=== PATIENT | male | born 1935 | race Caucasian/White ===

== ENCOUNTER 2016-10-15 12:19 | Inpatient (IN) | payer MEDICARE, OTHER ==
[2016-10-15] MEDS ORDERED: Mag-Al Plus 1200 MG/1200 MG/120 MG/30 ML UDCUP PO PRN (17:09)
[2016-10-15] MEDS ORDERED: Artificial Tear Sol 15 ML BOT EA EYE PRN (17:10)
[2016-10-15] MEDS ORDERED: Mag-Al Plus 1200 MG/1200 MG/120 MG/30 ML UDCUP SSW PRN (17:10)
[2016-10-15] MEDS ORDERED: Bisacodyl 10 MG SUPP PR PRN (17:10)
[2016-10-15] MEDS ORDERED: Furosemide 20 MG TAB PO PRN (17:11)
[2016-10-15] MEDS ORDERED: Milk Of Magnesia 30 ML UDCUP PO PRN (17:13)
[2016-10-15] MEDS ORDERED: traMADol HCl 50 MG TAB PO PRN (17:14)
[2016-10-15] MEDS ORDERED: MEDROL DOSPAK PO SCH (17:15)
[2016-10-15] MEDS ORDERED: Acetaminophen 325 MG TAB PER TUBE PRN (19:25)
[2016-10-15] MEDS: Pravastatin Sodium 20 MG TAB PO SCH (22:04)
[2016-10-16] MEDS: Levothyroxine Sodium 50 MCG TAB PO SCH (06:23)
[2016-10-16] MEDS: Potassium Chloride 20 MEQ TAB PO SCH (08:45)
[2016-10-16] MEDS: Aspirin 81 mg Enteric Coated Tablet PO SCH (08:46)
[2016-10-16] MEDS: Fluticasone Propionate Nasal Spray 16 gm Bottle NASAL SCH (08:46)
[2016-10-16] MEDS: DIPHENHYDRAMINE HCL SSP PRN ×8 (08:57→14:02)
[2016-10-16] MEDS: AL HYDROX SSP PRN ×8 (08:57→14:02)
[2016-10-16] MEDS: SIMETH SSP PRN ×8 (08:57→14:02)
[2016-10-16] MEDS: [UNRECOGNIZED DRUG - OTHER] SSP PRN ×8 (08:57→14:02)
[2016-10-16] MEDS: MAG HYDROX SSP PRN ×8 (08:57→14:02)
[2016-10-16] MEDS ORDERED: Lidocaine Viscous Sol 2% 15 ml UD Cup ONE (21:14)
[2016-10-16] MEDS: Pravastatin Sodium 20 MG TAB PO SCH (21:22)
[2016-10-16] MEDS: Lidocaine Viscous Sol 2% 15 ml UD Cup SSW PRN (21:22)
[2016-10-17] MEDS: Levothyroxine Sodium 50 MCG TAB PO SCH (06:06)
[2016-10-17] MEDS ORDERED: Lidocaine Viscous Sol 2% 15 ml UD Cup ONE (06:15)
[2016-10-17] MEDS: Lidocaine Viscous Sol 2% 15 ml UD Cup SSW PRN (06:20)
[2016-10-17] MEDS: Fluticasone Propionate Nasal Spray 16 gm Bottle NASAL SCH (08:42)
[2016-10-17] MEDS: SIMETH SSP PRN ×8 (08:44→18:53)
[2016-10-17] MEDS: MAG HYDROX SSP PRN ×8 (08:44→18:53)
[2016-10-17] MEDS: [UNRECOGNIZED DRUG - OTHER] SSP PRN ×8 (08:44→18:53)
[2016-10-17] MEDS: DIPHENHYDRAMINE HCL SSP PRN ×8 (08:44→18:53)
[2016-10-17] MEDS: Potassium Chloride 20 MEQ TAB PO SCH (08:44)
[2016-10-17] MEDS: AL HYDROX SSP PRN ×8 (08:44→18:53)
[2016-10-17] MEDS: Aspirin 81 mg Enteric Coated Tablet PO SCH (08:44)
[2016-10-17] MEDS: Pravastatin Sodium 20 MG TAB PO SCH (21:57)
[2016-10-18] MEDS: Levothyroxine Sodium 50 MCG TAB PO SCH (06:31)
[2016-10-18] MEDS ORDERED: Lidocaine Viscous Sol 2% 15 ml UD Cup ONE (06:41)
[2016-10-18] MEDS: Lidocaine Viscous Sol 2% 15 ml UD Cup SSW PRN (06:43)
[2016-10-18] MEDS: Aspirin 81 mg Enteric Coated Tablet PO SCH (09:05)
[2016-10-18] MEDS: Fluticasone Propionate Nasal Spray 16 gm Bottle NASAL SCH (09:06)
[2016-10-18] MEDS: Potassium Chloride 20 MEQ TAB PO SCH (09:10)
[2016-10-18] MEDS: MAG HYDROX SSP PRN ×8 (09:42→18:41)
[2016-10-18] MEDS: [UNRECOGNIZED DRUG - OTHER] SSP PRN ×8 (09:42→18:41)
[2016-10-18] MEDS: SIMETH SSP PRN ×8 (09:42→18:41)
[2016-10-18] MEDS: DIPHENHYDRAMINE HCL SSP PRN ×8 (09:42→18:41)
[2016-10-18] MEDS: AL HYDROX SSP PRN ×8 (09:42→18:41)
[2016-10-18] MEDS ORDERED: Zolpidem Tartrate 5 MG TAB PO PRN (10:58)
[2016-10-18] MEDS ORDERED: Scopolamine 1.5 mg/72 hour Patch TD PRN (10:58)
[2016-10-18] MEDS ORDERED: ALPRAZolam 0.5 MG TAB PO PRN (10:58)
[2016-10-18] MEDS ORDERED: Morphine Sulfate 2 MG/ML SYRINGE SLOW IVP PRN (10:58)
[2016-10-18] MEDS: Pravastatin Sodium 20 MG TAB PO SCH (21:25)
[2016-10-19] MEDS: Levothyroxine Sodium 50 MCG TAB PO SCH (06:13)
[2016-10-19] MEDS ORDERED: Lidocaine Viscous Sol 2% 15 ml UD Cup ONE (06:22)
[2016-10-19] MEDS: Lidocaine Viscous Sol 2% 15 ml UD Cup SSW PRN (06:23)
[2016-10-19] MEDS: Potassium Chloride 20 MEQ TAB PO SCH (09:29)
[2016-10-19] MEDS: Aspirin 81 mg Enteric Coated Tablet PO SCH (09:30)
[2016-10-19] MEDS: Fluticasone Propionate Nasal Spray 16 gm Bottle NASAL SCH (10:27)
[2016-10-19] MEDS: Pravastatin Sodium 20 MG TAB PO SCH (21:53)
[2016-10-20] MEDS: Levothyroxine Sodium 50 MCG TAB PO SCH (06:11)
[2016-10-20] MEDS ORDERED: Lidocaine Viscous Sol 2% 15 ml UD Cup ONE ×2 (06:21→21:14)
[2016-10-20] MEDS: Acetaminophen 325 MG TAB PO PRN ×2 (06:25→21:22)
[2016-10-20] MEDS: Lidocaine Viscous Sol 2% 15 ml UD Cup SSW PRN ×2 (06:25→21:23)
[2016-10-20] MEDS: Potassium Chloride 20 MEQ TAB PO SCH (09:05)
[2016-10-20] MEDS: Aspirin 81 mg Enteric Coated Tablet PO SCH (09:05)
[2016-10-20] MEDS: Fluticasone Propionate Nasal Spray 16 gm Bottle NASAL SCH (09:10)
[2016-10-20] MEDS: Pravastatin Sodium 20 MG TAB PO SCH (21:23)
[2016-10-21] MEDS ORDERED: Lidocaine Viscous Sol 2% 15 ml UD Cup ONE (06:27)
[2016-10-21] MEDS: Lidocaine Viscous Sol 2% 15 ml UD Cup SSW PRN (06:41)
[2016-10-21] MEDS: Levothyroxine Sodium 50 MCG TAB PO SCH (06:42)
[2016-10-21] MEDS ORDERED: DIPHENHYDRAMINE HCL SSW PRN ×4 (07:58)
[2016-10-21] MEDS ORDERED: [UNRECOGNIZED DRUG - OTHER] SSW PRN ×4 (07:58)
[2016-10-21] MEDS ORDERED: AL HYDROX SSW PRN ×4 (07:58)
[2016-10-21] MEDS ORDERED: SIMETH SSW PRN ×4 (07:58)
[2016-10-21] MEDS ORDERED: MAG HYDROX SSW PRN ×4 (07:58)
[2016-10-21] MEDS: Potassium Chloride 20 MEQ TAB PO SCH (08:46)
[2016-10-21] MEDS: Aspirin 81 mg Enteric Coated Tablet PO SCH (08:46)
[2016-10-21] MEDS: Fluticasone Propionate Nasal Spray 16 gm Bottle NASAL SCH (08:47)
[2016-10-21] MEDS ORDERED: Lidocaine Viscous Sol 2% 15 ml UD Cup SSW SCH (11:30)
[2016-10-21] MEDS: AL HYDROX SSW SCH ×8 (11:46→16:49)
[2016-10-21] MEDS: MAG HYDROX SSW SCH ×8 (11:46→16:49)
[2016-10-21] MEDS: DIPHENHYDRAMINE HCL SSW SCH ×8 (11:46→16:49)
[2016-10-21] MEDS: SIMETH SSW SCH ×8 (11:46→16:49)
[2016-10-21] MEDS: [UNRECOGNIZED DRUG - OTHER] SSW SCH ×8 (11:46→16:49)
[2016-10-21] MEDS: Sodium Chloride 0.9% 1,000 ML IV SCH (17:12)
[2016-10-21] MEDS: methylPREDNISolone 4 mg Tablet PO SCH ×2 (17:56→20:12)
[2016-10-21] MEDS: Nystatin Powder 15 GM BOT TOP PRN ×2 (17:59→20:14)
[2016-10-21] MEDS: Acetaminophen 325 MG TAB PO PRN (20:13)
[2016-10-21] MEDS: Pravastatin Sodium 20 MG TAB PO SCH (20:13)
[2016-10-22] MEDS: Levothyroxine Sodium 50 MCG TAB PO SCH (05:56)
[2016-10-22] MEDS: MAG HYDROX SSW PRN ×4 (06:10)
[2016-10-22] MEDS: [UNRECOGNIZED DRUG - OTHER] SSW PRN ×4 (06:10)
[2016-10-22] MEDS: AL HYDROX SSW PRN ×4 (06:10)
[2016-10-22] MEDS: SIMETH SSW PRN ×4 (06:10)
[2016-10-22] MEDS: DIPHENHYDRAMINE HCL SSW PRN ×4 (06:10)
[2016-10-22] MEDS: SIMETH SSW SCH ×12 (06:17→16:47)
[2016-10-22] MEDS: [UNRECOGNIZED DRUG - OTHER] SSW SCH ×12 (06:17→16:47)
[2016-10-22] MEDS: MAG HYDROX SSW SCH ×12 (06:17→16:47)
[2016-10-22] MEDS: DIPHENHYDRAMINE HCL SSW SCH ×12 (06:17→16:47)
[2016-10-22] MEDS: AL HYDROX SSW SCH ×12 (06:17→16:47)
[2016-10-22] MEDS: Nystatin Powder 15 GM BOT TOP PRN (06:21)
[2016-10-22] MEDS: Fluticasone Propionate Nasal Spray 16 gm Bottle NASAL SCH (09:00)
[2016-10-22] MEDS: Aspirin 81 mg Enteric Coated Tablet PO SCH (09:00)
[2016-10-22] MEDS: Potassium Chloride 20 MEQ TAB PO SCH (09:00)
[2016-10-22] MEDS: methylPREDNISolone 4 mg Tablet PO SCH ×3 (09:01→18:07)
[2016-10-22] MEDS: Sodium Chloride 0.9% 1,000 ML IV SCH ×2 (12:52→12:53)
[2016-10-22] MEDS: Acetaminophen 325 MG TAB PO PRN (19:11)
[2016-10-22] MEDS ORDERED: methylPREDNISolone 4 mg Tablet PO SCH (21:00)
[2016-10-22] MEDS: Pravastatin Sodium 20 MG TAB PO SCH (21:09)
[2016-10-23] MEDS: Levothyroxine Sodium 50 MCG TAB PO SCH (06:06)
[2016-10-23] MEDS: AL HYDROX SSW SCH ×12 (06:08→17:21)
[2016-10-23] MEDS: DIPHENHYDRAMINE HCL SSW SCH ×12 (06:08→17:21)
[2016-10-23] MEDS: SIMETH SSW SCH ×12 (06:08→17:21)
[2016-10-23] MEDS: MAG HYDROX SSW SCH ×12 (06:08→17:21)
[2016-10-23] MEDS: [UNRECOGNIZED DRUG - OTHER] SSW SCH ×12 (06:08→17:21)
[2016-10-23] MEDS: Sodium Chloride 0.9% 1,000 ML IV SCH (09:36)
[2016-10-23] MEDS: Aspirin 81 mg Enteric Coated Tablet PO SCH (09:38)
[2016-10-23] MEDS: Potassium Chloride 20 MEQ TAB PO SCH (09:39)
[2016-10-23] MEDS: methylPREDNISolone 4 mg Tablet PO SCH ×4 (09:40→21:38)
[2016-10-23] MEDS: Fluticasone Propionate Nasal Spray 16 gm Bottle NASAL SCH (09:40)
[2016-10-23] MEDS: Pravastatin Sodium 20 MG TAB PO SCH (21:38)
[2016-10-24] MEDS: Levothyroxine Sodium 50 MCG TAB PO SCH (06:42)
[2016-10-24] MEDS: AL HYDROX SSW SCH ×12 (06:43→17:15)
[2016-10-24] MEDS: [UNRECOGNIZED DRUG - OTHER] SSW SCH ×12 (06:43→17:15)
[2016-10-24] MEDS: SIMETH SSW SCH ×12 (06:43→17:15)
[2016-10-24] MEDS: MAG HYDROX SSW SCH ×12 (06:43→17:15)
[2016-10-24] MEDS: Sodium Chloride 0.9% 1,000 ML IV SCH (06:43)
[2016-10-24] MEDS: DIPHENHYDRAMINE HCL SSW SCH ×12 (06:43→17:15)
[2016-10-24] MEDS: methylPREDNISolone 4 mg Tablet PO SCH ×3 (09:57→17:17)
[2016-10-24] MEDS: Potassium Chloride 20 MEQ TAB PO SCH (09:57)
[2016-10-24] MEDS: Fluticasone Propionate Nasal Spray 16 gm Bottle NASAL SCH (09:59)
[2016-10-24] MEDS: Aspirin 81 mg Enteric Coated Tablet PO SCH (09:59)
[2016-10-24] MEDS: Pravastatin Sodium 20 MG TAB PO SCH (21:17)
[2016-10-25] MEDS: Sodium Chloride 0.9% 1,000 ML IV SCH (02:12)
[2016-10-25] MEDS: Levothyroxine Sodium 50 MCG TAB PO SCH (06:33)
[2016-10-25] MEDS: [UNRECOGNIZED DRUG - OTHER] SSW SCH ×12 (06:33→18:27)
[2016-10-25] MEDS: AL HYDROX SSW SCH ×12 (06:33→18:27)
[2016-10-25] MEDS: DIPHENHYDRAMINE HCL SSW SCH ×12 (06:33→18:27)
[2016-10-25] MEDS: MAG HYDROX SSW SCH ×12 (06:33→18:27)
[2016-10-25] MEDS: SIMETH SSW SCH ×12 (06:33→18:27)
[2016-10-25] MEDS: methylPREDNISolone 4 mg Tablet PO SCH ×2 (09:10→18:27)
[2016-10-25] MEDS: Potassium Chloride 20 MEQ TAB PO SCH (09:10)
[2016-10-25] MEDS: Fluticasone Propionate Nasal Spray 16 gm Bottle NASAL SCH (09:11)
[2016-10-25] MEDS: Aspirin 81 mg Enteric Coated Tablet PO SCH (09:11)
[2016-10-25] MEDS: Pravastatin Sodium 20 MG TAB PO SCH (21:39)
[2016-10-26] MEDS: Sodium Chloride 0.9% 1,000 ML IV SCH ×2 (00:19→18:44)
[2016-10-26] MEDS: Levothyroxine Sodium 50 MCG TAB PO SCH (05:59)
[2016-10-26] MEDS: DIPHENHYDRAMINE HCL SSW SCH ×12 (06:43→16:28)
[2016-10-26] MEDS: MAG HYDROX SSW SCH ×12 (06:43→16:28)
[2016-10-26] MEDS: [UNRECOGNIZED DRUG - OTHER] SSW SCH ×12 (06:43→16:28)
[2016-10-26] MEDS: AL HYDROX SSW SCH ×12 (06:43→16:28)
[2016-10-26] MEDS: SIMETH SSW SCH ×12 (06:43→16:28)
[2016-10-26] MEDS ORDERED: methylPREDNISolone 4 mg Tablet PO SCH (08:00)
[2016-10-26] MEDS: Fluticasone Propionate Nasal Spray 16 gm Bottle NASAL SCH (09:10)
[2016-10-26] MEDS: Potassium Chloride 20 MEQ TAB PO SCH (09:11)
[2016-10-26] MEDS: Aspirin 81 mg Enteric Coated Tablet PO SCH (09:11)
[2016-10-26] MEDS: Pravastatin Sodium 20 MG TAB PO SCH (21:34)
[2016-10-26] MEDS: Nystatin Powder 15 GM BOT TOP PRN (21:36)
[2016-10-27] MEDS: Levothyroxine Sodium 50 MCG TAB PO SCH (05:34)
[2016-10-27 06:05] VITALS: BMI 16.9
[2016-10-27] MEDS: MAG HYDROX SSW SCH ×12 (06:08→18:16)
[2016-10-27] MEDS: [UNRECOGNIZED DRUG - OTHER] SSW SCH ×12 (06:08→18:16)
[2016-10-27] MEDS: SIMETH SSW SCH ×12 (06:08→18:16)
[2016-10-27] MEDS: AL HYDROX SSW SCH ×12 (06:08→18:16)
[2016-10-27] MEDS: DIPHENHYDRAMINE HCL SSW SCH ×12 (06:08→18:16)
[2016-10-27] MEDS: Nystatin Powder 15 GM BOT TOP PRN ×2 (06:12→21:05)
[2016-10-27] MEDS: Potassium Chloride 20 MEQ TAB PO SCH (09:00)
[2016-10-27] MEDS: Aspirin 81 mg Enteric Coated Tablet PO SCH (09:01)
[2016-10-27] MEDS: Fluticasone Propionate Nasal Spray 16 gm Bottle NASAL SCH (09:01)
[2016-10-27] MEDS: Sodium Chloride 0.9% 1,000 ML IV SCH (14:37)
[2016-10-27] MEDS: Pravastatin Sodium 20 MG TAB PO SCH (21:05)
[2016-10-28] MEDS: Nystatin Powder 15 GM BOT TOP PRN (06:21)
[2016-10-28] MEDS: Levothyroxine Sodium 50 MCG TAB PO SCH (06:21)
[2016-10-28] MEDS: DIPHENHYDRAMINE HCL SSW SCH ×12 (06:23→16:01)
[2016-10-28] MEDS: [UNRECOGNIZED DRUG - OTHER] SSW SCH ×12 (06:23→16:01)
[2016-10-28] MEDS: SIMETH SSW SCH ×12 (06:23→16:01)
[2016-10-28] MEDS: AL HYDROX SSW SCH ×12 (06:23→16:01)
[2016-10-28] MEDS: MAG HYDROX SSW SCH ×12 (06:23→16:01)
[2016-10-28] MEDS: Potassium Chloride 20 MEQ TAB PO SCH (09:10)
[2016-10-28] MEDS: Aspirin 81 mg Enteric Coated Tablet PO SCH (09:11)
[2016-10-28] MEDS: Fluticasone Propionate Nasal Spray 16 gm Bottle NASAL SCH (09:12)
[2016-10-28] MEDS: Sodium Chloride 0.9% 1,000 ML IV SCH (09:20)
[2016-10-28] MEDS: [UNRECOGNIZED DRUG - OTHER] SSW PRN ×4 (15:59)
[2016-10-28] MEDS: DIPHENHYDRAMINE HCL SSW PRN ×4 (15:59)
[2016-10-28] MEDS: SIMETH SSW PRN ×4 (15:59)
[2016-10-28] MEDS: AL HYDROX SSW PRN ×4 (15:59)
[2016-10-28] MEDS: MAG HYDROX SSW PRN ×4 (15:59)
[2016-10-28] MEDS: Pravastatin Sodium 20 MG TAB PO SCH (21:15)
[2016-10-29] MEDS: Sodium Chloride 0.9% 1,000 ML IV SCH (06:05)
[2016-10-29] MEDS: Levothyroxine Sodium 50 MCG TAB PO SCH (06:07)
[2016-10-29] MEDS: AL HYDROX SSW SCH ×12 (06:08→18:34)
[2016-10-29] MEDS: SIMETH SSW SCH ×12 (06:08→18:34)
[2016-10-29] MEDS: [UNRECOGNIZED DRUG - OTHER] SSW SCH ×12 (06:08→18:34)
[2016-10-29] MEDS: DIPHENHYDRAMINE HCL SSW SCH ×12 (06:08→18:34)
[2016-10-29] MEDS: MAG HYDROX SSW SCH ×12 (06:08→18:34)
[2016-10-29] MEDS: Acetaminophen 325 MG TAB PO PRN ×2 (06:21→21:01)
[2016-10-29] MEDS: Fluticasone Propionate Nasal Spray 16 gm Bottle NASAL SCH (08:17)
[2016-10-29] MEDS: MAG HYDROX SSW PRN ×4 (08:18)
[2016-10-29] MEDS: DIPHENHYDRAMINE HCL SSW PRN ×4 (08:18)
[2016-10-29] MEDS: AL HYDROX SSW PRN ×4 (08:18)
[2016-10-29] MEDS: SIMETH SSW PRN ×4 (08:18)
[2016-10-29] MEDS: [UNRECOGNIZED DRUG - OTHER] SSW PRN ×4 (08:18)
[2016-10-29] MEDS: Aspirin 81 mg Enteric Coated Tablet PO SCH (08:21)
[2016-10-29] MEDS: Potassium Chloride 20 MEQ TAB PO SCH (08:21)
[2016-10-29] MEDS: Hyoscyamine Sulfate SL 0.125 mg Tablet PO PRN (21:01)
[2016-10-29] MEDS: Benzonatate 100 MG CAP PO PRN (21:01)
[2016-10-29] MEDS: Pravastatin Sodium 20 MG TAB PO SCH (21:02)
[2016-10-30] MEDS: Sodium Chloride 0.9% 1,000 ML IV SCH ×2 (02:04→22:10)
[2016-10-30] MEDS: Levothyroxine Sodium 50 MCG TAB PO SCH (05:57)
[2016-10-30] MEDS: [UNRECOGNIZED DRUG - OTHER] SSW SCH ×12 (05:59→17:01)
[2016-10-30] MEDS: AL HYDROX SSW SCH ×12 (05:59→17:01)
[2016-10-30] MEDS: SIMETH SSW SCH ×12 (05:59→17:01)
[2016-10-30] MEDS: MAG HYDROX SSW SCH ×12 (05:59→17:01)
[2016-10-30] MEDS: DIPHENHYDRAMINE HCL SSW SCH ×12 (05:59→17:01)
[2016-10-30] MEDS: Aspirin 81 mg Enteric Coated Tablet PO SCH (08:44)
[2016-10-30] MEDS: Potassium Chloride 20 MEQ TAB PO SCH (08:45)
[2016-10-30] MEDS: Fluticasone Propionate Nasal Spray 16 gm Bottle NASAL SCH (08:45)
[2016-10-30] MEDS: MAG HYDROX SSW PRN ×4 (12:09)
[2016-10-30] MEDS: SIMETH SSW PRN ×4 (12:09)
[2016-10-30] MEDS: [UNRECOGNIZED DRUG - OTHER] SSW PRN ×4 (12:09)
[2016-10-30] MEDS: DIPHENHYDRAMINE HCL SSW PRN ×4 (12:09)
[2016-10-30] MEDS: AL HYDROX SSW PRN ×4 (12:09)
[2016-10-30] MEDS ORDERED: MAG HYDROX SSW SCH ×4 (13:00)
[2016-10-30] MEDS ORDERED: DIPHENHYDRAMINE HCL SSW SCH ×4 (13:00)
[2016-10-30] MEDS ORDERED: SIMETH SSW SCH ×4 (13:00)
[2016-10-30] MEDS ORDERED: [UNRECOGNIZED DRUG - OTHER] SSW SCH ×4 (13:00)
[2016-10-30] MEDS ORDERED: AL HYDROX SSW SCH ×4 (13:00)
[2016-10-30] MEDS: Pravastatin Sodium 20 MG TAB PO SCH (20:23)
[2016-10-30] MEDS: Acetaminophen 325 MG TAB PO PRN (20:27)
[2016-10-31] MEDS: Levothyroxine Sodium 50 MCG TAB PO SCH (06:08)
[2016-10-31] MEDS: AL HYDROX SSW SCH ×12 (06:10→15:36)
[2016-10-31] MEDS: SIMETH SSW SCH ×12 (06:10→15:36)
[2016-10-31] MEDS: [UNRECOGNIZED DRUG - OTHER] SSW SCH ×12 (06:10→15:36)
[2016-10-31] MEDS: MAG HYDROX SSW SCH ×12 (06:10→15:36)
[2016-10-31] MEDS: DIPHENHYDRAMINE HCL SSW SCH ×12 (06:10→15:36)
[2016-10-31] MEDS: Aspirin 81 mg Enteric Coated Tablet PO SCH (08:38)
[2016-10-31] MEDS: Potassium Chloride 20 MEQ TAB PO SCH (08:38)
[2016-10-31] MEDS: Fluticasone Propionate Nasal Spray 16 gm Bottle NASAL SCH (08:38)
[2016-10-31] MEDS: Sodium Chloride 0.9% 1,000 ML IV SCH (16:28)
[2016-10-31] MEDS: Pravastatin Sodium 20 MG TAB PO SCH (20:55)
[2016-11-01] MEDS: Levothyroxine Sodium 50 MCG TAB PO SCH (06:07)
[2016-11-01] MEDS: SIMETH SSW PRN ×8 (06:08→12:07)
[2016-11-01] MEDS: MAG HYDROX SSW PRN ×8 (06:08→12:07)
[2016-11-01] MEDS: DIPHENHYDRAMINE HCL SSW PRN ×8 (06:08→12:07)
[2016-11-01] MEDS: [UNRECOGNIZED DRUG - OTHER] SSW PRN ×8 (06:08→12:07)
[2016-11-01] MEDS: AL HYDROX SSW PRN ×8 (06:08→12:07)
[2016-11-01] MEDS: DIPHENHYDRAMINE HCL SSW SCH ×12 (06:27→18:55)
[2016-11-01] MEDS: SIMETH SSW SCH ×12 (06:27→18:55)
[2016-11-01] MEDS: [UNRECOGNIZED DRUG - OTHER] SSW SCH ×12 (06:27→18:55)
[2016-11-01] MEDS: AL HYDROX SSW SCH ×12 (06:27→18:55)
[2016-11-01] MEDS: MAG HYDROX SSW SCH ×12 (06:27→18:55)
[2016-11-01] MEDS: Aspirin 81 mg Enteric Coated Tablet PO SCH (08:25)
[2016-11-01] MEDS: Fluticasone Propionate Nasal Spray 16 gm Bottle NASAL SCH (08:26)
[2016-11-01] MEDS: Potassium Chloride 20 MEQ TAB PO SCH (08:26)
[2016-11-01] MEDS: Sodium Chloride 0.9% 1,000 ML IV SCH (12:21)
[2016-11-01] MEDS: Pravastatin Sodium 20 MG TAB PO SCH (20:23)
[2016-11-02] MEDS: Levothyroxine Sodium 50 MCG TAB PO SCH (06:02)
[2016-11-02] MEDS: MAG HYDROX SSW SCH ×12 (06:06→16:44)
[2016-11-02] MEDS: SIMETH SSW SCH ×12 (06:06→16:44)
[2016-11-02] MEDS: DIPHENHYDRAMINE HCL SSW SCH ×12 (06:06→16:44)
[2016-11-02] MEDS: AL HYDROX SSW SCH ×12 (06:06→16:44)
[2016-11-02] MEDS: [UNRECOGNIZED DRUG - OTHER] SSW SCH ×12 (06:06→16:44)
[2016-11-02] MEDS: Sodium Chloride 0.9% 1,000 ML IV SCH (07:55)
[2016-11-02] MEDS: Aspirin 81 mg Enteric Coated Tablet PO SCH (08:54)
[2016-11-02] MEDS: Fluticasone Propionate Nasal Spray 16 gm Bottle NASAL SCH (08:55)
[2016-11-02] MEDS: Potassium Chloride 20 MEQ TAB PO SCH (08:55)
[2016-11-02] MEDS: Pravastatin Sodium 20 MG TAB PO SCH (20:56)
[2016-11-02] MEDS: Acetaminophen 325 MG TAB PO PRN (21:00)
[2016-11-03] MEDS: Benzonatate 100 MG CAP PO PRN ×3 (02:31→20:41)
[2016-11-03] MEDS: Sodium Chloride 0.9% 1,000 ML IV SCH (04:13)
[2016-11-03] MEDS: Levothyroxine Sodium 50 MCG TAB PO SCH (06:14)
[2016-11-03] MEDS: [UNRECOGNIZED DRUG - OTHER] SSW SCH ×12 (06:15→18:29)
[2016-11-03] MEDS: DIPHENHYDRAMINE HCL SSW SCH ×12 (06:15→18:29)
[2016-11-03] MEDS: AL HYDROX SSW SCH ×12 (06:15→18:29)
[2016-11-03] MEDS: MAG HYDROX SSW SCH ×12 (06:15→18:29)
[2016-11-03] MEDS: SIMETH SSW SCH ×12 (06:15→18:29)
[2016-11-03] MEDS: Aspirin 81 mg Enteric Coated Tablet PO SCH (08:49)
[2016-11-03] MEDS: Potassium Chloride 20 MEQ TAB PO SCH (08:49)
[2016-11-03] MEDS: Fluticasone Propionate Nasal Spray 16 gm Bottle NASAL SCH (08:49)
[2016-11-03] MEDS: Pravastatin Sodium 20 MG TAB PO SCH (20:41)
[2016-11-03] MEDS: Acetaminophen 325 MG TAB PO PRN (20:41)
[2016-11-03] MEDS: Hyoscyamine Sulfate SL 0.125 mg Tablet PO PRN (20:42)
[2016-11-04] MEDS: Levothyroxine Sodium 50 MCG TAB PO SCH (06:11)
[2016-11-04] MEDS: AL HYDROX SSW SCH ×12 (06:12→16:57)
[2016-11-04] MEDS: MAG HYDROX SSW SCH ×12 (06:12→16:57)
[2016-11-04] MEDS: SIMETH SSW SCH ×12 (06:12→16:57)
[2016-11-04] MEDS: [UNRECOGNIZED DRUG - OTHER] SSW SCH ×12 (06:12→16:57)
[2016-11-04] MEDS: DIPHENHYDRAMINE HCL SSW SCH ×12 (06:12→16:57)
[2016-11-04] MEDS: Aspirin 81 mg Enteric Coated Tablet PO SCH (08:28)
[2016-11-04] MEDS: Fluticasone Propionate Nasal Spray 16 gm Bottle NASAL SCH (08:29)
[2016-11-04] MEDS: Potassium Chloride 20 MEQ TAB PO SCH (08:33)
[2016-11-04] MEDS: Benzonatate 100 MG CAP PO PRN (17:10)
[2016-11-04] MEDS: Acetaminophen 325 MG TAB PO PRN (21:43)
[2016-11-04] MEDS: Hyoscyamine Sulfate SL 0.125 mg Tablet PO PRN (21:43)
[2016-11-04] MEDS: Pravastatin Sodium 20 MG TAB PO SCH (21:44)
[2016-11-05] MEDS: Levothyroxine Sodium 50 MCG TAB PO SCH (06:24)
[2016-11-05] MEDS: AL HYDROX SSW SCH ×12 (06:25→16:58)
[2016-11-05] MEDS: MAG HYDROX SSW SCH ×12 (06:25→16:58)
[2016-11-05] MEDS: [UNRECOGNIZED DRUG - OTHER] SSW SCH ×12 (06:25→16:58)
[2016-11-05] MEDS: DIPHENHYDRAMINE HCL SSW SCH ×12 (06:25→16:58)
[2016-11-05] MEDS: SIMETH SSW SCH ×12 (06:25→16:58)
[2016-11-05] MEDS: Aspirin 81 mg Enteric Coated Tablet PO SCH (08:49)
[2016-11-05] MEDS: Potassium Chloride 20 MEQ TAB PO SCH (08:49)
[2016-11-05] MEDS: Fluticasone Propionate Nasal Spray 16 gm Bottle NASAL SCH (08:54)
[2016-11-05] MEDS: Acetaminophen 325 MG TAB PO PRN (19:44)
[2016-11-05] MEDS: Pravastatin Sodium 20 MG TAB PO SCH (21:11)
[2016-11-06] MEDS: Levothyroxine Sodium 50 MCG TAB PO SCH (06:41)
[2016-11-06] MEDS: traMADol HCl 50 MG TAB PO PRN (09:26)
[2016-11-06] MEDS: Fluticasone Propionate Nasal Spray 16 gm Bottle NASAL SCH (09:29)
[2016-11-06] MEDS: Aspirin 81 mg Enteric Coated Tablet PO SCH (09:29)
[2016-11-06] MEDS: Potassium Chloride 20 MEQ TAB PO SCH (09:30)
[2016-11-06] MEDS: [UNRECOGNIZED DRUG - OTHER] SSW SCH ×12 (12:15→20:45)
[2016-11-06] MEDS: SIMETH SSW SCH ×12 (12:15→20:45)
[2016-11-06] MEDS: DIPHENHYDRAMINE HCL SSW SCH ×12 (12:15→20:45)
[2016-11-06] MEDS: MAG HYDROX SSW SCH ×12 (12:15→20:45)
[2016-11-06] MEDS: AL HYDROX SSW SCH ×12 (12:15→20:45)
[2016-11-06] MEDS: Ibuprofen 800 MG TAB PO PRN (16:37)
[2016-11-06] MEDS: Pravastatin Sodium 20 MG TAB PO SCH (20:42)
[2016-11-07] MEDS: Levothyroxine Sodium 50 MCG TAB PO SCH (06:27)
[2016-11-07] MEDS: AL HYDROX SSW SCH ×8 (06:29→13:29)
[2016-11-07] MEDS: [UNRECOGNIZED DRUG - OTHER] SSW SCH ×8 (06:29→13:29)
[2016-11-07] MEDS: MAG HYDROX SSW SCH ×8 (06:29→13:29)
[2016-11-07] MEDS: SIMETH SSW SCH ×8 (06:29→13:29)
[2016-11-07] MEDS: DIPHENHYDRAMINE HCL SSW SCH ×8 (06:29→13:29)
[2016-11-07] MEDS: Aspirin 81 mg Enteric Coated Tablet PO SCH (09:22)
[2016-11-07] MEDS: Potassium Chloride 20 MEQ TAB PO SCH (09:23)
[2016-11-07] MEDS: Fluticasone Propionate Nasal Spray 16 gm Bottle NASAL SCH (09:24)
[2016-11-07] MEDS: Ibuprofen 800 MG TAB PO PRN (09:55)
[2016-11-07] MEDS: Benzonatate 100 MG CAP PO PRN (09:56)
[2016-11-07] MEDS: traMADol HCl 50 MG TAB PO PRN (21:16)
[2016-11-07] MEDS: Pravastatin Sodium 20 MG TAB PO SCH (21:18)
[2016-11-08] MEDS: AL HYDROX SSW SCH ×16 (06:21→16:30)
[2016-11-08] MEDS: [UNRECOGNIZED DRUG - OTHER] SSW SCH ×16 (06:21→16:30)
[2016-11-08] MEDS: MAG HYDROX SSW SCH ×16 (06:21→16:30)
[2016-11-08] MEDS: DIPHENHYDRAMINE HCL SSW SCH ×16 (06:21→16:30)
[2016-11-08] MEDS: SIMETH SSW SCH ×16 (06:21→16:30)
[2016-11-08] MEDS: Levothyroxine Sodium 50 MCG TAB PO SCH (06:23)
[2016-11-08] MEDS: Potassium Chloride 20 MEQ TAB PO SCH (09:05)
[2016-11-08] MEDS: Aspirin 81 mg Enteric Coated Tablet PO SCH (09:06)
[2016-11-08] MEDS: Fluticasone Propionate Nasal Spray 16 gm Bottle NASAL SCH (09:09)
[2016-11-08] MEDS: Pravastatin Sodium 20 MG TAB PO SCH (21:53)
[2016-11-09] MEDS: DIPHENHYDRAMINE HCL SSW SCH ×12 (06:28→18:09)
[2016-11-09] MEDS: MAG HYDROX SSW SCH ×12 (06:28→18:09)
[2016-11-09] MEDS: [UNRECOGNIZED DRUG - OTHER] SSW SCH ×12 (06:28→18:09)
[2016-11-09] MEDS: SIMETH SSW SCH ×12 (06:28→18:09)
[2016-11-09] MEDS: AL HYDROX SSW SCH ×12 (06:28→18:09)
[2016-11-09] MEDS: Levothyroxine Sodium 50 MCG TAB PO SCH (06:29)
[2016-11-09] MEDS: Potassium Chloride 20 MEQ TAB PO SCH (08:19)
[2016-11-09] MEDS: Aspirin 81 mg Enteric Coated Tablet PO SCH (08:21)
[2016-11-09] MEDS: Fluticasone Propionate Nasal Spray 16 gm Bottle NASAL SCH (08:22)
[2016-11-09] MEDS: Pravastatin Sodium 20 MG TAB PO SCH (23:21)
[2016-11-09] MEDS: Benzonatate 100 MG CAP PO PRN (23:22)
[2016-11-09] MEDS: Hyoscyamine Sulfate SL 0.125 mg Tablet PO PRN (23:23)
[2016-11-09] MEDS: Acetaminophen 325 MG TAB PO PRN (23:24)
[2016-11-10] MEDS: AL HYDROX SSW SCH ×16 (05:59→18:25)
[2016-11-10] MEDS: SIMETH SSW SCH ×16 (05:59→18:25)
[2016-11-10] MEDS: [UNRECOGNIZED DRUG - OTHER] SSW SCH ×16 (05:59→18:25)
[2016-11-10] MEDS: Levothyroxine Sodium 50 MCG TAB PO SCH (05:59)
[2016-11-10] MEDS: MAG HYDROX SSW SCH ×16 (05:59→18:25)
[2016-11-10] MEDS: DIPHENHYDRAMINE HCL SSW SCH ×16 (05:59→18:25)
[2016-11-10] MEDS ORDERED: Cyclobenzaprine 10 MG TAB PO PRN (07:51)
[2016-11-10] MEDS: Fluticasone Propionate Nasal Spray 16 gm Bottle NASAL SCH (08:50)
[2016-11-10] MEDS: Aspirin 81 mg Enteric Coated Tablet PO SCH (08:52)
[2016-11-10] MEDS: Potassium Chloride 20 MEQ TAB PO SCH (08:52)
[2016-11-10] MEDS: Acetaminophen 325 MG TAB PO PRN (21:21)
[2016-11-10] MEDS: Pravastatin Sodium 20 MG TAB PO SCH (21:21)
[2016-11-10] MEDS: Hyoscyamine Sulfate SL 0.125 mg Tablet PO PRN (21:34)
[2016-11-10] MEDS: Benzonatate 100 MG CAP PO PRN (21:35)
[2016-11-11] MEDS: DIPHENHYDRAMINE HCL SSW SCH ×12 (06:16→17:30)
[2016-11-11] MEDS: SIMETH SSW SCH ×12 (06:16→17:30)
[2016-11-11] MEDS: AL HYDROX SSW SCH ×12 (06:16→17:30)
[2016-11-11] MEDS: MAG HYDROX SSW SCH ×12 (06:16→17:30)
[2016-11-11] MEDS: [UNRECOGNIZED DRUG - OTHER] SSW SCH ×12 (06:16→17:30)
[2016-11-11] MEDS: Levothyroxine Sodium 50 MCG TAB PO SCH (06:16)
[2016-11-11] MEDS: Aspirin 81 mg Enteric Coated Tablet PO SCH (08:49)
[2016-11-11] MEDS: Potassium Chloride 20 MEQ TAB PO SCH (08:49)
[2016-11-11] MEDS: Fluticasone Propionate Nasal Spray 16 gm Bottle NASAL SCH (08:50)
[2016-11-11] MEDS: Benzonatate 100 MG CAP PO PRN (20:54)
[2016-11-11] MEDS: Pravastatin Sodium 20 MG TAB PO SCH (20:54)
[2016-11-11] MEDS: Acetaminophen 325 MG TAB PO PRN (20:55)
[2016-11-12] MEDS ORDERED: Nitroglycerin 0.4 MG TAB (25 Tab Bottle) ONE (05:17)
[2016-11-12] MEDS: Levothyroxine Sodium 50 MCG TAB PO SCH (06:14)
[2016-11-12] MEDS: [UNRECOGNIZED DRUG - OTHER] SSW SCH ×12 (06:15→16:02)
[2016-11-12] MEDS: DIPHENHYDRAMINE HCL SSW SCH ×12 (06:15→16:02)
[2016-11-12] MEDS: SIMETH SSW SCH ×12 (06:15→16:02)
[2016-11-12] MEDS: AL HYDROX SSW SCH ×12 (06:15→16:02)
[2016-11-12] MEDS: MAG HYDROX SSW SCH ×12 (06:15→16:02)
[2016-11-12] MEDS: Aspirin 81 mg Enteric Coated Tablet PO SCH (08:35)
[2016-11-12] MEDS: Fluticasone Propionate Nasal Spray 16 gm Bottle NASAL SCH (08:35)
[2016-11-12] MEDS: Potassium Chloride 20 MEQ TAB PO SCH (08:35)
[2016-11-12] MEDS: Benzonatate 100 MG CAP PO PRN (21:14)
[2016-11-12] MEDS: Pravastatin Sodium 20 MG TAB PO SCH (21:14)
[2016-11-13] MEDS: AL HYDROX SSW SCH ×12 (06:31→19:03)
[2016-11-13] MEDS: DIPHENHYDRAMINE HCL SSW SCH ×12 (06:31→19:03)
[2016-11-13] MEDS: SIMETH SSW SCH ×12 (06:31→19:03)
[2016-11-13] MEDS: [UNRECOGNIZED DRUG - OTHER] SSW SCH ×12 (06:31→19:03)
[2016-11-13] MEDS: Levothyroxine Sodium 50 MCG TAB PO SCH (06:31)
[2016-11-13] MEDS: MAG HYDROX SSW SCH ×12 (06:31→19:03)
[2016-11-13] MEDS: Fluticasone Propionate Nasal Spray 16 gm Bottle NASAL SCH (09:25)
[2016-11-13] MEDS: Aspirin 81 mg Enteric Coated Tablet PO SCH (09:26)
[2016-11-13] MEDS: Potassium Chloride 20 MEQ TAB PO SCH (09:26)
[2016-11-13] MEDS: Benzonatate 100 MG CAP PO PRN (20:14)
[2016-11-13] MEDS: Acetaminophen 325 MG TAB PO PRN (20:15)
[2016-11-13] MEDS: Hyoscyamine Sulfate SL 0.125 mg Tablet PO PRN (20:15)
[2016-11-13] MEDS: Pravastatin Sodium 20 MG TAB PO SCH (20:15)
[2016-11-14 06:09] VITALS: BP 122/68; TEMP 97.9
[2016-11-14] MEDS: Levothyroxine Sodium 50 MCG TAB PO SCH (06:25)
[2016-11-14] MEDS: SIMETH SSW SCH ×4 (06:26)
[2016-11-14] MEDS: [UNRECOGNIZED DRUG - OTHER] SSW SCH ×4 (06:26)
[2016-11-14] MEDS: DIPHENHYDRAMINE HCL SSW SCH ×4 (06:26)
[2016-11-14] MEDS: AL HYDROX SSW SCH ×4 (06:26)
[2016-11-14] MEDS: MAG HYDROX SSW SCH ×4 (06:26)
[2016-11-14] MEDS: Potassium Chloride 20 MEQ TAB PO SCH (08:56)
[2016-11-14] MEDS: Aspirin 81 mg Enteric Coated Tablet PO SCH (08:57)
[2016-11-14] MEDS: Fluticasone Propionate Nasal Spray 16 gm Bottle NASAL SCH (08:59)
--- NOTE | 2016-11-14 17:24 | DIS ---
DATE OF ADMISSION: 10/15/2016 DATE OF DISCHARGE: 11/14/2016 ADMISSION DIAGNOSES: Multiple myeloma, moderate cardiomyopathy, cachexia, history of atrial fibrill ation and dysphagia. SECONDARY DIAGNOSES: Include urinary retention and diastolic congestive heart failure. PROCEDURES: None. HOSPITAL COURSE: An 81-year-old male with multiple myeloma who is not in remission and unfortunatel y unable to be successfully treated per Oncology, who was formerly following him, Dr. Callaway. The patient transitioned from [facility] in [place] where he was treated for septic shock and acute r espiratory failure likely secondary to pneumonia. Due to his terminal illness, multiple discussions were had as far as hospice care whether that be in a alf setting versus inpatient facility due to the patient living alone. However, the patient chose to participate with palliative care at our facility here, which we were able to accommodate. The patient was placed on comfort feeds and further symptomatic care. In spite of his known aspiration risk, he was also provided suctioning fo r p.r.n. secretions. Of note, his diet was able to be advanced from a pureed to a mechanical soft d iet, which he tolerated fairly well. He was able to participate with physical therapy and occupatio nal therapy secondary to his physical deconditioning and cachectic state, and was able to show progr ess in his conditioning. During the patient stay, a Tapia catheter was placed secondary to concerns for urinary retention; I feel this is partially due to him holding his voids for extended periods s econdary to initially being unable to successfully transfer from his bed due to deconditioned state to the restroom. As his overall conditioning showed improvement, he was able to transfer more succe ssfully to bedside commode and therefore, his Tapia catheter was removed without further issue. The patient was visited by his neighbor during his stay and discussions were held for him to be further cared for under hospice care in the home setting with his neighbor. The logistics were further arr anged to be able to pursue this and at this time, we will proceed with discharge with [facility]. The patient is hemodynamically stable and has remained afebrile throughout his stay with n o significant further setbacks and will be discharged at this time. DISCHARGE DISPOSITION: The patient will return home under the care of his neighbor and via [facility]. DISCHARGE MEDICATIONS: Acetaminophen 650 mg p.o. q.4 hours p.r.n., magnesium hydroxide 30 mL p.o. q .6 hours p.r.n., DuoNebs q.6 hours p.r.n., alprazolam 0.5 mg p.o. t.i.d. p.r.n., Artificial Tears p. r.n., aspirin 81 mg p.o. daily, Tessalon Perles 100 mg p.o. t.i.d. p.r.n., Dulcolax 10 mg per rectum q.24 hours p.r.n., cholecalciferol 1000 units p.o. q.a.m., Flexeril 10 mg p.o. t.i.d. p.r.n., Flona se daily p.r.n., Lasix 20 mg p.o. daily p.r.n., Levsin 0.125 mg p.o. q.4 hours p.r.n., Motrin 800 mg p.o. q.8 hours p.r.n., isosorbide mononitrate 30 mg p.o. daily, Synthroid 75 mcg p.o. daily, Proton ix 40 mg p.o. daily, potassium chloride 20 mEq p.o. daily, pravastatin 20 mg p.o. at bedtime, Scopol amine 1.5 mg transdermal q.72 hours p.r.n., tramadol 50 mg p.o. q.6 hours p.r.n., Valtrex 500 mg p.o . daily and Ambien 5 mg p.o. at bedtime p.r.n.
== END 2016-11-14 11:27 | disposition hospice, home (50) | DRG 871 ==
LOC: BURMED 16:30
PROVIDERS: ADMIT Family Medicine; ATTEND Family Medicine
DX: A41.9 Sepsis, unspecified organism (principal); J69.0 Pneumonitis due to inhalation of food and vomit; J96.01 Acute respiratory failure with hypoxia; R65.21 Severe sepsis with septic shock; N17.9 Acute kidney failure, unspecified; E46 Unspecified protein-calorie malnutrition; R64 Cachexia; C90.00 Multiple myeloma not having achieved remission; I42.9 Cardiomyopathy, unspecified; I50.32 Chronic diastolic (congestive) heart failure; Z68.1 Body mass index [BMI] 19.9 or less, adult; I48.91 Unspecified atrial fibrillation; R13.10 Dysphagia, unspecified; R33.9 Retention of urine, unspecified; Z51.5 Encounter for palliative care; Z88.0 Allergy status to penicillin
CPT/HCPCS: 94640; A4216; G8978-GP-CL; G8979-GP-CJ; G8987-GO-CL; G8987-GO-CM; G8988-GO-CJ; G8988-GO-CK; G8996-GN-CK; G8996-GN-CM; G8997-GN-CK; G8997-GN-CM; J7620